=== PATIENT | male | born 1995 | race Caucasian/White ===

== ENCOUNTER 2017-12-14 08:36 | Emergency (ER) | payer OTHER, SELFPAY ==
[2017-12-14 08:37] VITALS: BP 140/86; PULSE 93; RESP 18; TEMP 36; O2SAT 98; BMI 34.3
--- NOTE | 2017-12-14 08:47 | ED.DCSUM_ITS ---
- ER Visit Summary Date of Service: 12/14/17 Chief Complaint: Swollen throat, left ear pain History of Present Illness: The patient is a 22 M who presents with the above symptoms. Is been ongoing for 2 days. He can with the pain in the left ear. He also has a sore throat. Worse with swallowing. He denies fevers. He tried Tylenol, Advil and NyQuil without any relief. He went to his [facility] yesterday and had a negative rapid strep. Physical Examination: Vital signs reviewed. HEENT exam reveals clear TMs. He does have some mild posterior oropharyngeal erythema. No tonsillar swelling. No exudates. Heart is regular rate and rhythm. Lungs clear to auscultation. Abdomen soft and nontender. Neurologic exam normal Test Results: None performed Emergency Department Course and Treatment: This appears to be viral in nature. He did have a negative rapid strep yesterday per the patient. I will treat him with 1 dose of Decadron here to help with the sensation of swelling. I will send him home with Am[facility]. Will follow up with his [facility] Treatment Plan: [] Disposition: Discharge Impression: Pharyngitis This note was generated with [employer] dictation software. It may contain incorrect words, spelling, and punctuation that were not noted in review of the chart prior to signing ED Disposition - Plan for ED Patient: Chief Complaint: Sore Throat
--- NOTE | 2017-12-14 08:47 | ED.DEP ---
ED Disposition - Plan for ED Patient: Disposition: Home or Assisted Living Chief Complaint: Sore Throat Instructions: ED Pharyngitis Viral Prescriptions: Guaifenesin/Pseudoephedrne HCl [Guaifenesin-Pse ER 600-60 mg] 1 ea PO BID #14 [id number]
[2017-12-14 08:53] VITALS: BP 127/88; PULSE 77; RESP 16; O2SAT 99
== END 2017-12-14 09:04 | disposition home or self-care (01) ==
LOC: ED 09:01
PROVIDERS: Emergency Provider Emergency Medicine; Family Provider Pediatrics; PCP Pediatrics
DX: J02.9 Acute pharyngitis, unspecified (principal); Z72.0 Tobacco use
CPT/HCPCS: 99283